=== PATIENT | male | born 1970 | race Caucasian/White ===

== ENCOUNTER 2016-05-18 04:52 | Day surgery (SDC) | payer OTHER ==
[2016-05-06 12:30] VITALS: BMI 26.6
--- NOTE | 2016-05-18 08:44 | HP ---
Satellite H - Chief Complaint Chief Complaint: left shoulder pain - Past Medical History Allergies/Adverse Reactions: Allergies Allergy/AdvReac Type Severity Reaction Status Date / Time No Known Allergies Allergy Verified 05/18/16 08:14 - Current Medications Current Medications: Medication Instructions Recorded Oxycodone HCl/Acetaminophen 1 - 2 tab PO Q6H #50 tab MDD 8 05/18/16 [Percocet 5-325 mg Tablet -] Satellite Physical Exam - Physical Examination Vital Signs: Vital Signs Period Temp Pulse Resp BP Sys/Manuel Pulse Ox Last 24 Hr 98.6 F 74 18 116/85 98 General Appearance: Well Nourished, Well Developed, Alert & Oriented x3 ENT: Clear Lung: Normal air movement Heart: Regular rate & rhythm Extremities: Other (left shoulder- + ttp, decr rom, + neer, + thompson, + cross arm add, nvi) Neurological: Intact, Alert, Oriented Satellite Impression/Plan - Impression/Plan Impression: left shoulder impingement, AC jt oa Operative Procedure: left shoulder arthroscopy with BRODIE SATNOYO Date to be Performed: 05/18/16
[2016-05-18] MEDS ORDERED: ROPIVACAINE HCL 0.5% 30ML VIAL ONE (09:20)
[2016-05-18] MEDS ORDERED: MIDAZOLAM HCL 2 MG/2 ML SINGLE DOSE VIAL ONE ×2 (09:21)
[2016-05-18] MEDS ORDERED: ONDANSETRON 4 MG/2 ML VIAL IVPUSH PRN (10:04)
[2016-05-18] MEDS ORDERED: oxyCODONE HCL 5 MG TABLET PO PRN (10:04)
[2016-05-18] MEDS ORDERED: PROPOFOL 20 ML ONE ×2 (10:07)
[2016-05-18] MEDS ORDERED: ceFAZolin SODIUM 1 GM VIAL IVPB ONE (10:15)
[2016-05-18] MEDS ORDERED: LACTATED RINGERS SOLUTION 1,000 ML IV SCH (10:15)
[2016-05-18] MEDS ORDERED: ceFAZolin SODIUM 1 GM VIAL ONE (10:19)
[2016-05-18] MEDS ORDERED: KETOROLAC TROMETHAMINE 30 MG/1 ML VIAL ONE (10:44)
[2016-05-18] MEDS ORDERED: DEXAMETHASONE SOD PHOSPHATE 4 MG/1 ML VIAL ONE (10:44)
--- NOTE | 2016-05-18 11:00 | OP ---
Operative Note - Note: Operative Date: 05/18/16 ([facility]) Pre-Operative Diagnosis: left shoulder impingement, AC jt OA Operation: left shoulder arthroscopy with SAD, DCE, extensive debridement of bone and soft tissue Post-Operative Diagnosis: Same as Pre-op Surgeon: Pierre Pace Anesthesiologist/BURLAP BAG SEWER: Odette Cassidy Anesthesia: General, Local Specimens Removed: shavings Estimated Blood Loss (mls): 5 Operative Report Dictated: Yes
[2016-05-18 12:22] VITALS: TEMP 97.8
[2016-05-18 14:22] VITALS: BP 139/80; PULSE 80
--- NOTE | 2016-05-19 09:51 | OP ---
DATE OF OPERATION: 05/18/2016 PREOPERATIVE DIAGNOSIS: Impingement and acromioclavicular arthritis, left shoulder. POSTOPERATIVE DIAGNOSIS: Impingement and acromioclavicular arthritis, left shoulder. PROCEDURE: Arthroscopy, left shoulder subacromial decompression, and distal clavicle excision. SURGICAL ATTENDING: Pierre Pace MD ANESTHESIA: Regional and general. CLOSURE: 3-0 nylon. COMPLICATIONS: None. CONDITION: To recovery room in stable condition. DESCRIPTION OF OPERATIVE PROCEDURE: Patient was taken to the operating room on May 18, 2016. A scalene block as well as IV sedation was administered by the anesthesiologist. IV Kefzol was administered prophylactically prior to the case. Patient was placed in the beach-chair position with all prominences well padded. Left shoulder was prepped and draped in the usual sterile fashion. First, a diagnostic arthroscopy of the glenohumeral joint was performed. A posterior portal was made 2 fingerbreadths below the acromion with a 15 blade followed by a blunt trocar. Circumferential examination of the glenohumeral joint revealed the following: Intact glenoid and humeral head articular cartilage, intact labrum, circumferentially intact biceps to its anchor, intact subscapularis to its insertion, intact supra- and infraspinatus and teres minor to its insertion. No loose bodies in the axillary pouch. The fluid was drained from the shoulder, and the trocar was removed. The posterior trocar was redirected in the subacromial space. The accessory lateral portal was made using 15 blade followed by a blunt trocar. A large amount of subacromial bursal tissue was encountered, which was debrided using the ArthroCare device and a shaver. Undersurface debridement of the acromion and burring of the acromion up to the appropriate levels to gain height of the subacromial space was performed. The coracoacromial ligament was identified and detached off the anterior acromion. It was visualized to drop inferior and was further debrided. Any bursal tissue encountered encasing the humeral head was debrided, exposing the healthy rotator cuff tissue beneath. A spinal needle was used to isolate the AC joint. An anterior portal at the AC joint was then made with a 15 blade followed by a blunt trocar. The soft tissue in the AC joint was debrided using ArthroCare device with a shaver. The distal clavicle was then burred using an acromionizer bur taking off the distal 1 cm of the clavicle. Direct visualization in the AC joint revealed that the entire clavicle from front to back was taken from inferior to superior to ensure that there was no residual bone. The undersurface of the clavicle and the undersurface of the acromion was co-planed to give a nice surface for the soft tissue underneath. The shoulder was irrigated copiously and shaved for all particulate debris. The trocars were removed. Fluid was drained from the shoulder. The portals were closed using 3-0 nylon and a sterile pressure dressing, followed by a sling was applied. Patient awakened from anesthesia and transferred to recovery in stable condition. No complications. Estimated blood loss negligible. Alyssa [id number]
--- NOTE | 2016-05-19 12:19 | PATH ---
Surgical Pathology Report Patient Name: JESSICA DAMON Med. Rec. #: [id number] /Age/Gender: 1970 (Age: 46) / M Account: [id number] Location: [facility] SURGICAL Taken: 05/18/2016 Received: 05/18/2016 Reported: 05/19/2016 Physicians: Pierre Pace M.D. Specimen(s) Received SHAVINGS LEFT SHOULDER Clinical History Left shoulder impingement syndrome Final Diagnosis LEFT SHOULDER, ARTHROSCOPIC SHAVING: PORTIONS OF SYNOVIUM, CARTILAGE, SKELETAL MUSCLE AND BONE CONSISTENT WITH ARTHROSCOPIC SHAVINGS. Electronically Signed Tee Novoa M.D. Gross Description Received in formalin, labeled "left shoulder shavings," is a 4.0 x 3.3 x 0.4 cm. aggregate of jones-yellow soft tissue fragments. A territory service representative portion is submitted in one cassette. /05/18/2016 saudi/05/18/2016
== END 2016-05-18 13:40 | disposition home or self-care (01) ==
LOC: JASU-SURG 04:52
PROVIDERS: ATTEND Orthopaedic Surgery
PROC: 0PBB4ZZ Excision of Left Clavicle, Percutaneous Endoscopic Approach (ICD-10-PCS; 2016-05-18)
PROC: 0RBK4ZZ Excision of Left Shoulder Joint, Percutaneous Endoscopic Approach (ICD-10-PCS; principal; 2016-05-18 10:00)
DX: M75.42 Impingement syndrome of left shoulder (principal); M19.012 Primary osteoarthritis, left shoulder
CPT/HCPCS: 88304-TC; 94760

== ENCOUNTER 2017-01-06 07:51 | Emergency (ER) | payer MEDICARE, OTHER ==
[2017-01-06 08:06] VITALS: TEMP 98.3; BMI 28.3
--- NOTE | 2017-01-06 08:19 | PDOC ---
History of Present Illness - General History Source: Patient Exam Limitations: No Limitations - History of Present Illness Initial Comments: 01/06/17 08:53 The patient is a 46-year-old male with no significant past medical history, and presents to the emergency department with chest pain for 8 days. He reports that the pain started minimally and worsened over the next few days. At 3am this morning while at rest, he reports he felt palpitations for 20 minutes. He states the pain is diffuse across the whole chest, worse on the left-side, and worsened with inspiration, movement, and cough. He describes the pain to the center of his chest as a burning sensation. He reports he has been coughing for 1 month. He denies any recent travel. He states he was seen at [facility] recently for the same issue. The patient denies shortness of breath, leg swelling or cramping, headache and dizziness. The patient denies fever, chills, nausea, vomit, diarrhea and constipation. The patient denies dysuria, frequency, urgency and hematuria. Allergies: NKDA Past Surgical History: shoulder surgery (April 2016) Social History: current everyday smoker (5 cigarettes a day), ETOH use, denies drug use PCP: Dr. Tee Horne <Wendi Stephens - Last Filed: 01/06/17 09:19> <Emily Vizcaino - Last Filed: 01/06/17 10:49> - General Chief Complaint: Chest Pain Stated Complaint: LEFT SIDE CHEST PAIN Time Seen by Provider: 01/06/17 08:11 Past History <Wendi Stephens - Last Filed: 01/06/17 09:19> - Past Medical History Anemia: No Asthma: No Cancer: No Cardiac Disorders: No CVA: No COPD: No CHF: No Dementia: No Diabetes: No GI Disorders: No Disorders: No HTN: No Hypercholesterolemia: No Liver Disease: No Seizures: No Thyroid Disease: No Other medical history: DENIES. - Surgical History Neurologic Surgery: Yes (spinal sx) - Psycho/Social/Smoking Cessation Hx Anxiety: No Suicidal Ideation: No Smoking History: Current every day smoker Have you smoked in the past 12 months: Yes Number of Cigarettes Smoked Daily: 5 Information on smoking cessation initiated: Yes 'Breaking Loose' booklet given: 05/06/16 Hx Alcohol Use: No Drug/Substance Use Hx: No Substance Use Type: None <CindablaiseEmily garcía - Last Filed: 01/06/17 10:49> - Past Medical History Allergies/Adverse Reactions: Allergies Allergy/AdvReac Type Severity Reaction Status Date / Time No Known Allergies Allergy Verified 01/06/17 07:57 Home Medications: Ambulatory Orders Oxycodone HCl/Acetaminophen [Percocet 5-325 mg Tablet -] 1 - 2 tab PO Q6H #50 tab MDD 8 05/18/16 Review of Systems - Review of Systems Able to Perform ROS?: Yes Comments:: 01/06/17 08:53 GENERAL/CONSTITUTIONAL: No fever or chills. No weakness. HEAD, EYES, EARS, NOSE AND THROAT: No change in vision. No ear pain or discharge. No sore throat. CARDIOVASCULAR: (+) Chest pain. No shortness of breath. RESPIRATORY: (+) Cough. No wheezing, or hemoptysis. GASTROINTESTINAL: No nausea, vomiting, diarrhea or constipation. GENITOURINARY: No dysuria, frequency, or change in urination. MUSCULOSKELETAL: No joint or muscle swelling or pain. No neck or back pain. SKIN: No rash NEUROLOGIC: No headache, vertigo, loss of consciousness, or change in strength/ sensation. ENDOCRINE: No increased thirst. No abnormal weight change. HEMATOLOGIC/LYMPHATIC: No anemia, easy bleeding, or history of blood clots. ALLERGIC/IMMUNOLOGIC: No hives or skin allergy. <AngeloWendi - Last Filed: 01/06/17 09:19> *Physical Exam - Vital Signs Last Vital Signs Temp Pulse Resp BP Pulse Ox 98.3 F 73 19 139/86 98 01/06/17 07:57 01/06/17 07:57 01/06/17 07:57 01/06/17 07:57 01/06/17 07:57 - Physical Exam Comments: 01/06/17 08:53 GENERAL: Awake, alert, and fully oriented, in no acute distress HEAD: No signs of trauma EYES: PERRLA, EOMI, sclera anicteric, conjunctiva clear ENT: Auricles normal inspection, hearing grossly normal, nares patent, oropharynx clear without exudates. Moist mucosa NECK: Normal ROM, supple, no lymphadenopathy, JVD, or masses LUNGS: Breath sounds equal, clear to auscultation bilaterally. No wheezes, and no crackles HEART: (+) Anterior and left-sided chest wall tenderness. Regular rate and rhythm, normal S1 and S2, no murmurs, rubs or gallops ABDOMEN: Soft, nontender, normoactive bowel sounds. No guarding, no rebound. No masses EXTREMITIES: Normal range of motion, no edema. No clubbing or cyanosis. No cords, erythema, or tenderness NEUROLOGICAL: Cranial nerves II through XII grossly intact. Normal speech. SKIN: Warm, Dry, normal turgor, no rashes or lesions noted. <StephensEllaWendi - Last Filed: 01/06/17 09:19> - Vital Signs Last Vital Signs Temp Pulse Resp BP Pulse Ox 98.3 F 73 19 139/86 98 01/06/17 07:57 01/06/17 07:57 01/06/17 07:57 01/06/17 07:57 01/06/17 07:57 <Emily Vizcaino - Last Filed: 01/06/17 10:49> Heart Score/ECG Review - History History: Slightly suspicious - Electrocardiogram EKG: Normal - Age Age: 45-65 - Risk Factors Risk Factors Heart Score: Yes Smoking History Based on the list above the patient has:: 1-2 risk factors - Troponin Troponin: </= normal limit - Score Heart Score - Total: 2 - ECG Intrepretation Comment:: 01/06/17 08:40 ekg: sinus at 64, nl axis, nl interval, lvh, no acute st/t wave findings <Emily Vizcaino - Last Filed: 01/06/17 10:49> ED Treatment Course - LABORATORY CBC & Chemistry Diagram: 01/06/17 08:40 01/06/17 08:40 - ADDITIONAL ORDERS Additional order review: 01/06/17 08:40 RBC 3.88 L MCV 95.6 MCHC 34.6 RDW 13.1 MPV 8.6 D Neutrophils % 62.0 Lymphocytes % 26.5 Monocytes % 8.1 Eosinophils % 2.4 D Basophils % 1.0 - Medications Given in the ED: ED Medications Discontinued Medications Generic Name Dose Route Start Last Admin Trade Name Freq PRN Reason Stop Dose Admin Ketorolac Tromethamine 15 mg 01/06/17 08:31 01/06/17 08:42 Toradol Injection - IVPUSH 01/06/17 08:32 15 mg ONCE ONE Administration Sodium Chloride 1,000 ml 01/06/17 08:31 01/06/17 08:42 Normal Saline - IV 01/06/17 08:32 1,000 ml ONCE ONE Administration <Wendi Stephens - Last Filed: 01/06/17 09:19> - LABORATORY CBC & Chemistry Diagram: 01/06/17 08:40 01/06/17 08:40 <Emily Vizcaino - Last Filed: 01/06/17 10:49> Medical Decision Making - Medical Decision Making 01/06/17 08:55 46yo male with persistent cough x 1 month and atypical cp. -will give gi cocktail for burning sensation. will give toradol for anterior chest wall ttp -ekg -cxr -labs -tsh and dimer for palpitations and cp -pt is nontoxic in appearance. 01/06/17 10:46 re-eval: pt feeling better. no pain. discussed all reason to return to the ED and need for followup. answered all questions. pt stable for d/c to home. Discussed labs, imaging, ekg findings with the patient. Discussed continuing motrin for anterior chest wall pain - recommended taking with food or milk. Pt stable for d/c to home. <Emily Vizcaino - Last Filed: 01/06/17 10:49> *DC/Admit/Observation/Transfer - Attestations Scribe Attestion: 01/06/17 08:54 Documentation prepared by Wendi Stephens, acting as medical surgical tech for Emily Vizcaino DO. <Wendi Stephens - Last Filed: 01/06/17 09:19> - Discharge Dispostion Admit: No - Attestations Physician Attestion: 01/06/17 08:56 I, Dr. Emily Vizcaino DO, attest that this document has been prepared under my direction and personally reviewed by me in its entirety. I further attest, that it accurately reflects all work, treatment, procedures and medical decision -making performed by me. <Emily Vizcaino - Last Filed: 01/06/17 10:49> Diagnosis at time of Disposition: Atypical chest pain - Discharge Dispostion Disposition: HOME Condition at time of disposition: Stable - Referrals Referrals: Tee Horne [Primary Care Provider] - - Patient Instructions Printed Discharge Instructions: DI for Atypical Chest Pain Additional Instructions: Please take all meds as prescribed. Please return to the ED with any further concerns. Please follow up with your PMD.
[2017-01-06] MEDS ORDERED: SODIUM CHLORIDE 0.9% 1000 ML INFUS.BAG IV ONE (08:31)
[2017-01-06] MEDS ORDERED: MAG HYDROX/AL HYDROX/SIMETH 30 ML UNIT-DOSE CUP PO ONE (08:31)
[2017-01-06] MEDS ORDERED: LIDOCAINE VISCOUS 2% ORAL/TOP 20 ML UNIT-DOSE CUP MM ONE (08:31)
[2017-01-06] MEDS ORDERED: KETOROLAC TROMETHAMINE 15 MG/ML VIAL IVPUSH ONE (08:31)
[2017-01-06] MEDS ORDERED: MAG HYDROX/AL HYDROX/SIMETH 30 ML UNIT-DOSE CUP ONE (08:39)
[2017-01-06] MEDS ORDERED: KETOROLAC TROMETHAMINE 15 MG/ML VIAL ONE (08:39)
[2017-01-06 08:47] LABS: EOSINOPHIL 2.4 % (0-4.5); MCHC 34.6 g/dl (32.0-35.9); MEAN CELL VOLUME 95.6 fl (80-96); MEAN PLT VOLUME 8.6 fl (7.5-11.1); PLATELET COUNT 175 K/MM3 (134-434); RDW 13.1 % (11.9-15.9); WHITE BLOOD COUNT 7.8 K/mm3 (4.0-10.0)
[2017-01-06 09:14] LABS: ALBUMIN 3.9 g/dl (3.4-5.0); ANION GAP 7 (8-16); BILIRUBIN,TOTAL 0.5 mg/dL (0.2-1.0); CALCIUM 8.8 mg/dL (8.5-10.1); CO2 24 mmol/L (21-32); CREATININE 0.6 mg/dL (0.7-1.3); GLUCOSE,RANDOM 98 mg/dL (74-106); SGOT/AST 20 U/L (15-37); SGPT/ALT 21 U/L (12-78); TOT PROT 6.8 g/dl (6.4-8.2)
[2017-01-06 09:22] LABS: ALK PHOS 90 U/L (45-117); THYROID STIMULATING HORMONE 3.11 uIU/ml (0.358-3.74)
[2017-01-06 10:25] LABS: CPK 248 IU/L (39-308); TROPONIN I < 0.02 ng/ml (0.00-0.05)
[2017-01-06 11:09] VITALS: BP 133/85; PULSE 63
--- NOTE | 2017-01-09 16:59 | EKG ---
Test Reason : Blood Pressure : / mmHG Vent. Rate : 064 BPM Atrial Rate : 064 BPM P-R Int : 164 ms QRS Dur : 114 ms QT Int : 436 ms P-R-T Axes : 049 033 050 degrees QTc Int : 449 ms NORMAL SINUS RHYTHM NORMAL ECG WHEN COMPARED WITH ECG OF 06-MAY-2016 12:08, NO SIGNIFICANT CHANGE WAS FOUND Confirmed by TITI MIR MD ([id number]) on 01/09/2017 4:59:34 PM Referred By: Confirmed By:TITI MIR MD
== END 2017-01-06 11:00 | disposition home or self-care (01) ==
LOC: JER 07:51
PROC: 3E0333Z Introduction of Anti-inflammatory into Peripheral Vein, Percutaneous Approach (ICD-10-PCS; principal; 2017-01-06)
PROC: 3E0337Z Introduction of Electrolytic and Water Balance Substance into Peripheral Vein, Percutaneous Approach (ICD-10-PCS; 2017-01-06)
DX: R07.89 Other chest pain (principal); F17.210 Nicotine dependence, cigarettes, uncomplicated
CPT/HCPCS: 36415; 71020-TC; 80053; 82553; 84443; 84484; 85025; 85379; 93005; 93010; 96361; 96374; 99283-25

== ENCOUNTER 2018-05-16 05:27 | Day surgery (SDC) | payer OTHER ==
[2018-05-01 11:26] VITALS: BMI 28.3
[2018-05-16] MEDS ORDERED: DEXAMETHASONE SOD PHOSPHATE/PF 10 MG/ML SDV ONE (08:33)
[2018-05-16] MEDS ORDERED: ROPIVACAINE HCL 0.5% 30ML VIAL ONE (08:34)
[2018-05-16] MEDS ORDERED: MIDAZOLAM HCL 2 MG/2 ML SINGLE DOSE VIAL ONE ×2 (08:35)
[2018-05-16] MEDS ORDERED: PROPOFOL 20 ML ONE (08:38)
[2018-05-16] MEDS ORDERED: LIDOCAINE HCL/PF 2% SDV 5ML VIAL ONE (08:40)
[2018-05-16] MEDS ORDERED: DEXAMETHASONE SOD PHOSPHATE 4 MG/1 ML VIAL ONE (08:40)
--- NOTE | 2018-05-16 08:42 | HP ---
Satellite [facility] - Chief Complaint Chief Complaint: right shoulder pain - Past Medical History Allergies/Adverse Reactions: Allergies Allergy/AdvReac Type Severity Reaction Status Date / Time No Known Allergies Allergy Verified 05/16/18 08:05 - Current Medications Current Medications: Home Medications Medication Instructions Recorded Oxycodone HCl/Acetaminophen 1 - 2 tab PO Q6H #30 tab MDD 6 05/16/18 [Percocet 5-325 mg Tablet] Satellite Physical Exam - Physical Examination Vital Signs: Vital Signs Period Temp Pulse Resp BP Sys/Manuel Pulse Ox Last 24 Hr 97.9 F-97.9 F 85-85 20-20 120-120/89-89 98 General Appearance: Well Nourished, Well Developed, Alert & Oriented x3 ENT: Clear Lung: Normal air movement Heart: Regular rate & rhythm Extremities: Other (right shoulder- + ttp, decr rom, + neer, + thompson, nvi MRI + partial rct, impingement) Neurological: Intact, Alert, Oriented Satellite Impression/Plan - Impression/Plan Impression: right shoulder impingement, partial rct Operative Procedure: right shoulder arthroscopy with SAD, possible RCR Date to be Performed: 05/16/18
[2018-05-16] MEDS ORDERED: ceFAZolin SODIUM 1 GM VIAL IVPB ONE (09:49)
[2018-05-16] MEDS ORDERED: ONDANSETRON 4 MG/2 ML VIAL IVPUSH PRN (10:16)
[2018-05-16] MEDS ORDERED: oxyCODONE HCL 5 MG TABLET PO PRN (10:16)
[2018-05-16] MEDS ORDERED: ACETAMINOPHEN 325 MG TABLET (FP) PO PRN (10:16)
[2018-05-16] MEDS ORDERED: LACTATED RINGERS SOLUTION 1,000 ML IV SCH (10:30)
--- NOTE | 2018-05-16 11:08 | OP ---
Operative Note - Note: Operative Date: 05/16/18 ([facility]) Pre-Operative Diagnosis: right shoulder impingement, partial rct Operation: right shoulder arthroscopy with labral repair, SAD Implants: 2 arthrex pushlocks Post-Operative Diagnosis: Other (labral tear) Surgeon: Lavon Franz Counselor Marriage And Family: Gustavo Ahn Anesthesiologist/GEOGRAPHY FACULTY MEMBER: Shazia Palmer Anesthesia: General, Local Specimens Removed: shavings Estimated Blood Loss (mls): 5 Operative Report Dictated: Yes
--- NOTE | 2018-05-16 13:05 | SPEC ---
DATE OF OPERATION: PREOPERATIVE DIAGNOSIS: Right shoulder impingement syndrome, possible labral tear and possible rotator cuff tear. POSTOPERATIVE DIAGNOSIS: Right shoulder impingement syndrome and labral tear. PROCEDURE: 1. Right shoulder arthroscopy. 2. Subacromial decompression. 3. Arthroscopic labral repair. SURGEON: Lavon Franz M.D. SANITATION WORKER HOSING MACHINERY: MICHI Haskins. ANESTHESIA: Interscalene block with LMA anesthesia. ANESTHESIOLOGIST: Shazia Roa CRNA. DRAINS: None. COMPLICATIONS: None. SPECIMENS: None. BLOOD LOSS: None. BLOOD GIVEN: None. FLUID REPLACEMENT: 2 g of Ancef were given. INDICATIONS: After understanding the potential risks, complications, alternatives and benefits of surgery versus nonsurgical treatment, the patient elected to undergo this procedure. PROCEDURE: The upper extremity was prepped and draped in a sterile fashion. The bony landmarks marked out with a marking pen. Posterior portal was established with a No. 11 scalpel blade and the arthroscope introduced into the glenohumeral joint for diagnostic arthroscopy. All the intraarticular structures were identified and, except for some synovitis, the patient did not have any significant intraarticular pathology. The glenoid labrum was intact as was the biceps tendon. The glenoid and humeral head were free of arthritis. The undersurface rotator cuff was clean and there was no evidence of tear. The area was washed out and the arthroscope introduced into the subacromial space. The patient had a tremendous amount of bursitis in the subacromial space. A spinal needle was used to establish a lateral portal under direct visualization. A No. 11 scalpel blade was used to cut through the skin and a Green cannula introduced into the subacromial space. The ArthroCare ablator was then used to do a soft tissue subacromial decompression of all this adhesive inflammatory bursitis. This revealed a very large bony spur on the inner surface of the anterolateral edge of the acromion. Using a combination of the 5.5 mm oval shine and the 4.5 mL shaver, I then did a bony decompression, removing this bony spur. Once this was done and the undersurface of the acromion was flat and the bursectomy was completed, the top surface of the rotator cuff was directly visualized and seen to be intact. It moved in unison with the humerus and there was no rotator cuff tear. The shaver was re-introduced into the subacromial space. All debris was removed, and all instrumentation then removed from the shoulder. In the glenohumeral joint the patient was seen to have a tear of the anterior labrum from the 12 oclock to the 5 oclock position. Two anterior portals were established. The frayed edges were debrided and in the standard fashion 2 PushLock anchors were placed into the glenoid rim holding down the labral tear. Photographs taken before and after and was probed before and after seemed to be quite stable. Then 20 mL of 0.5% Marcaine was introduced into the subacromial space. A 3-0 nylon suture was used in a sport stitch fashion to close the two arthroscopy portals. There was a wash and dry performed with Xeroform, 4 x4, ABD and tape. Total operative time was 50 minutes. A splint was applied. Patient was taken down out of the beach chair position and brought to the ambulatory recovery room in stable condition. Alyssa [id number]
[2018-05-16 15:51] VITALS: BP 140/84; PULSE 82; TEMP 98
== END 2018-05-16 14:10 | disposition home or self-care (01) ==
LOC: JASU-SURG 05:27
PROVIDERS: ATTEND Orthopaedic Surgery
PROC: 0RQJ4ZZ Repair Right Shoulder Joint, Percutaneous Endoscopic Approach (ICD-10-PCS; 2018-05-16)
PROC: 0RNJ4ZZ Release Right Shoulder Joint, Percutaneous Endoscopic Approach (ICD-10-PCS; principal; 2018-05-16 09:00)
DX: M75.41 Impingement syndrome of right shoulder (principal); S43.492A Other sprain of left shoulder joint, initial encounter; X58.XXXA Exposure to other specified factors, initial encounter; Y93.9 Activity, unspecified; Y92.9 Unspecified place or not applicable; Y99.9 Unspecified external cause status
CPT/HCPCS: 94760

== ENCOUNTER 2020-11-23 04:19 | Day surgery (SDC) | payer OTHER ==
[2020-11-19 17:11] VITALS: BMI 27.4
[2020-11-23] MEDS ORDERED: LIDOCAINE HCL 1%, 10 MG/ML (20ML VIAL) ONE (12:23)
[2020-11-23] MEDS ORDERED: BUPIVACAINE HCL/PF 0.25% (2.5MG/ML) 10 ML VIAL ONE (12:24)
[2020-11-23] MEDS ORDERED: DEXAMETHASONE SOD PHOSPHATE 10 MG/1 ML VIAL ONE (12:26)
[2020-11-23] MEDS ORDERED: MIDAZOLAM HCL 2 MG/2 ML SINGLE DOSE VIAL ONE (12:33)
[2020-11-23] MEDS ORDERED: IOHEXOL 180 MG/1 ML ML IJ ONE (12:45)
[2020-11-23] MEDS ORDERED: BUPIVACAINE HCL/PF 0.25% (2.5MG/ML) 10 ML VIAL IJ ONE (12:46)
[2020-11-23] MEDS ORDERED: DEXAMETHASONE SOD PHOSPHATE 10 MG/1 ML VIAL IVPUSH ONE (12:46)
[2020-11-23 13:56] VITALS: BP 136/89; PULSE 68; TEMP 97.8
== END 2020-11-23 13:40 | disposition home or self-care (01) ==
LOC: JASU-SURG 04:19
PROVIDERS: ATTEND Physical Medicine & Rehabilitation
PROC: 3E0T33Z Introduction of Anti-inflammatory into Peripheral Nerves and Plexi, Percutaneous Approach (ICD-10-PCS; 2020-11-23)
PROC: 3E0T3BZ Introduction of Anesthetic Agent into Peripheral Nerves and Plexi, Percutaneous Approach (ICD-10-PCS; principal; 2020-11-23 11:30)
DX: G90.512 Complex regional pain syndrome I of left upper limb (principal); M79.642 Pain in left hand
CPT/HCPCS: 76000-TC-FY; J1100

== ENCOUNTER 2021-09-10 16:03 | Emergency (ER) | payer OTHER ==
[2021-09-10 16:09] VITALS: BP 154/81; PULSE 79; TEMP 98.5; BMI 26.6
[2021-09-10] MEDS ORDERED: FAMOTIDINE 10 MG TABLET PO ONE (17:45)
[2021-09-10] MEDS ORDERED: FAMOTIDINE 10 MG TABLET ONE (17:57)
== END 2021-09-10 18:43 | disposition home or self-care (01) ==
LOC: JER 16:03
DX: R10.9 Unspecified abdominal pain (principal)
CPT/HCPCS: 99283-25

== ENCOUNTER 2023-06-22 09:16 | Emergency (ER) | payer OTHER ==
[2023-06-22 09:28] VITALS: BP 146/95; PULSE 82; RESP 18; TEMP 98.9; BMI 25.0
== END 2023-06-22 10:11 | disposition home or self-care (01) ==
LOC: JER 09:16
DX: R51.9 Headache, unspecified (principal); H57.89 Other specified disorders of eye and adnexa
CPT/HCPCS: 99283-25